=== PATIENT | male | born 1990 | race Caucasian/White ===

== ENCOUNTER 2018-10-14 07:59 | Emergency (ER) | payer BC ==
[2018-10-14] MEDS ORDERED: Diphtheria,Pertussis(Acell),Tetanus Vaccine 0.5 ML SDV IM ONE (08:29)
[2018-10-14] MEDS ORDERED: Bacitracin Oint 1 GM U/D Packet TOP ONE (08:30)
[2018-10-14] MEDS ORDERED: Lidocaine 2% 20 ML MDV INJECT ONE (08:30)
--- NOTE | 2018-10-14 08:35 | EDM.PDOC ---
ED HPI GENERAL MEDICAL PROBLEM - General Chief Complaint: General Stated Complaint: NAIL THROUGH LT THUMB Time Seen by Provider: 10/14/18 08:25 Source of Information: Reports: Patient History Limitations: Reports: No Limitations - History of Present Illness INITIAL COMMENTS - FREE TEXT/NARRATIVE: 28 yo male got a nail in the distal L thumb today at work. Uncertain tetanus status. Here for removal. Onset: Today Onset Date: 10/14/18 Onset Time: 07:05 Duration: Minutes:, Constant Location: Reports: Upper Extremity, Left Quality: Reports: Dull Severity: Mild Improves with: Reports: Rest Worsens with: Reports: Movement Context: Reports: Trauma Associated Symptoms: Reports: No Other Symptoms Treatments PRODUCTION TECHNOLOGIST: Reports: Other (see below) (none) Left Finger-Thumb Pain Score (Numeric/FACES): 6 - Related Data Allergies Allergy/AdvReac Type Severity Reaction Status Date / Time No Known Allergies Allergy Verified 10/14/18 08:23 Home Meds: Home Meds NK [No Known Home Meds] 10/14/18 [History] Past Medical History HEENT History: Reports: Impaired Vision - Past Surgical History Head Surgeries/Procedures: Reports: None HEENT Surgical History: Reports: None Social & Family History - Tobacco Use Smoking Status *Q: Never Smoker Second Hand Smoke Exposure: No - Caffeine Use Caffeine Use: Reports: None - Alcohol Use Days Per Week of Alcohol Use: 1 Number of Drinks Per Day: 1 Total Drinks Per Week: 1 - Recreational Drug Use Recreational Drug Use: No ED ROS GENERAL - Review of Systems Review Of Systems: See Below Constitutional: Reports: No Symptoms Musculoskeletal: Reports: No Symptoms Skin: Reports: Wound (puncture wound L distal thumb) Neurological: Reports: No Symptoms ED EXAM, GENERAL - Physical Exam Exam: See Below Exam Limited By: No Limitations General Appearance: Alert, WD/WN, No Apparent Distress Extremities: Other (large nail through and through of distal L thumb, no active bleeding.) Neurological: Alert, Oriented, CN II-XII Intact, Normal Cognition, No Motor/ Sensory Deficits Psychiatric: Normal Affect, Normal Mood Skin Exam: Warm, Dry, Normal Color, No Rash, Wound/Incision (puncture of L thumb , nail still imbedded in distal thumb) Course - Vital Signs Text/Narrative:: Nail cut at skin level on the entrance side, also cut the little gloria that was protruding. He had been digitally blocked with 5 ml of 2% lidocaine in advance. His thumb and the nail were soaked in betadine before extraction. Last Recorded V/S: Last Vital Signs Temp 36.0 C 10/14/18 08:27 Pulse 74 10/14/18 08:27 Resp 16 10/14/18 08:27 BP 145/90 H 10/14/18 08:27 Pulse Ox 97 10/14/18 08:27 - Orders/Labs/Meds Orders: Active Orders 24 hr Category Date Time Status Vaccines to be Administered [RC] PER UNIT ROUTINE Care 10/14/18 08:30 Active Meds: Medications Discontinued Medications Generic Name Dose Route Start Last Admin Trade Name Freq PRN Reason Stop Dose Admin Hydrocodone Bitart/Acetaminophen 1 tab 10/14/18 09:29 Montgomery 325-5 Mg PO 10/14/18 09:30 ONETIME ONE Bacitracin 1 dose 10/14/18 08:30 10/14/18 08:52 Bacitracin Oint 1 Gm TOP 10/14/18 08:31 1 dose ONETIME ONE Administration Diphtheria/Tetanus/Acell Pertussis 0.5 ml 10/14/18 08:29 Adacel IM 10/14/18 08:30 .ONCE ONE Lidocaine HCl 6 ml 10/14/18 08:30 10/14/18 08:52 Xylocaine 2% INJECT 10/14/18 08:31 6 ml ONETIME ONE Administration Povidone Iodine 30 ml 10/14/18 08:40 10/14/18 08:52 Betadine 10% Soln TOP 10/14/18 08:41 30 ml NOW STA Administration - Radiology Interpretation Free Text/Narrative:: L thumb X-ray-no fx Departure - Departure Time of Disposition: 09:40 Disposition: Home, Self-Care 01 Condition: Fair Clinical Impression: Puncture wound of thumb with foreign body without damage to nail Qualifiers: Encounter type: initial encounter Laterality: left Qualified Code(s): S61.042A - Puncture wound with foreign body of left thumb without damage to nail, initial encounter Clinical Impression: (Ruled Out): Foreign body (FB) in soft tissue, Puncture wound of thumb - Discharge Information *PRESCRIPTION DRUG MONITORING PROGRAM REVIEWED*: No *COPY OF PRESCRIPTION DRUG MONITORING REPORT IN PATIENT TALHA: No Instructions: Puncture Wound, [id number] Referrals: PCP,None [Primary Care Provider] - Forms: ED Department Discharge Additional Instructions: Clean wound twice daily with soap and water. Dry. Apply antibiotic ointment and a new dressing. Keep elevated today to reduce pain and bleeding. Take ibuprofen 600 mg every 6 hrs with food and/or acetaminophen 1000 mg every 6 hrs for pain relief. Wound recheck Wednesday morning in the clinic, return here over the weekend if worse. - My Orders Last 24 Hours: My Active Orders 10/14/18 08:30 Vaccines to be Administered [RC] PER UNIT ROUTINE - Assessment/Plan Last 24 Hours: My Active Orders 10/14/18 08:30 Vaccines to be Administered [RC] PER UNIT ROUTINE
[2018-10-14] MEDS ORDERED: Povidone-Iodine 10% Soln 118.25 ML Bottle TOP STA (08:40)
--- NOTE | 2018-10-14 09:22 | CRLCR ---
INDICATION: Nail in thumb. FINDINGS: Four views of the left thumb show a nail through the soft tissues over the distal tip of the 1st distal phalanx. No evidence of acute fracture. No other bony or soft tissue abnormalities identified. Dictated by Dickson Crane MD @ 10/14/2018 9:20:24 AM Dictated by: Dickson Crane MD @ 10/14/2018 09:21:09 (Electronically Signed)
[2018-10-14] MEDS ORDERED: Acetaminophen/HYDROcodone 325-5 MG Tab PO ONE (09:29)
== END 2018-10-14 09:41 | disposition home or self-care (01) ==
LOC: JP.ED 07:59
DX: S61.042A Puncture wound with foreign body of left thumb without damage to nail, initial encounter (principal); Z23 Encounter for immunization; W45.0XXA Nail entering through skin, initial encounter
CPT/HCPCS: 64450; 73140; 90471; 90715; 99283; A9270; J2001

== ENCOUNTER 2019-08-31 14:08 | Emergency (ER) | payer SELFPAY ==
[2019-08-31] MEDS ORDERED: Lidocaine 2% 20 ML MDV NERVRT ONE (14:26)
--- NOTE | 2019-08-31 14:55 | CR ---
Fingers Third Digit Lt F2 CLINICAL HISTORY: Laceration FINDINGS: Patient has a comminuted displaced fracture of the third middle phalanx. There is a fracture line extending to the proximal articular margin. Impression: Displaced comminuted fracture third middle phalanx
--- NOTE | 2019-08-31 15:02 | EDM.PDOC ---
ED HPI GENERAL MEDICAL PROBLEM - General Chief Complaint: Upper Extremity Injury/Pain Stated Complaint: CUT FINGER OFF WITH A SAW Time Seen by Provider: 08/31/19 14:50 Source of Information: Reports: Patient History Limitations: Reports: No Limitations - History of Present Illness INITIAL COMMENTS - FREE TEXT/NARRATIVE: 29 yo male accidently nearly completely amputated his L long finger with a power saw before arrival. His tetanus is UTD. This injury is not work related. Onset: Today, Sudden Onset Date: 08/31/19 Duration: Minutes:, Constant Location: Reports: Upper Extremity, Left Quality: Reports: Ache Severity: Moderate Improves with: Reports: None Worsens with: Reports: Other (bumping wound) Context: Reports: Trauma Associated Symptoms: Reports: No Other Symptoms Treatments EMERGENCY DEPARTMENT RN: Reports: Other (see below) (none) - Related Data Allergies Allergy/AdvReac Type Severity Reaction Status Date / Time No Known Allergies Allergy Verified 10/14/18 08:23 Home Meds: Home Meds NK [No Known Home Meds] 10/14/18 [History] Past Medical History HEENT History: Reports: Impaired Vision - Past Surgical History Head Surgeries/Procedures: Reports: None HEENT Surgical History: Reports: None Social & Family History - Tobacco Use Smoking Status *Q: Never Smoker - Caffeine Use Caffeine Use: Reports: None Review of Systems - Review of Systems Review Of Systems: See Below Constitutional: Reports: No Symptoms Musculoskeletal: Reports: Hand Pain (L long finger pain from his injury) Skin: Reports: Wound (L long finger amputation just distal to the PIP st) Neurological: Reports: Numbness (dsital to the injury) ED EXAM, GENERAL - Physical Exam Exam: See Below Exam Limited By: No Limitations General Appearance: Alert, WD/WN, No Apparent Distress Extremities: Other (Traumatic amputation of the L long finger just distally to the PIP jt). No: Normal Inspection, Normal Range of Motion, Non-Tender, Redness Neurological: Alert, Oriented, CN II-XII Intact, Normal Cognition. No: No Motor/Sensory Deficits (numbness distal to the injury) Psychiatric: Normal Affect, Normal Mood Skin Exam: Warm, Dry, Normal Color, No Rash, Wound/Incision (open wound from traumatic finger amputation ) Course - Vital Signs Text/Narrative:: Dr. Rubio has been called and will see patient in the ER. Last Recorded V/S: Last Vital Signs Temp 36 C L 08/31/19 14:28 Pulse 81 08/31/19 14:28 Resp 16 08/31/19 14:28 BP 120/73 08/31/19 14:28 Pulse Ox 99 08/31/19 14:28 - Orders/Labs/Meds Orders: Active Orders 24 hr Category Date Time Status Sodium Chloride 0.9% [Normal Saline] 1,000 ml Med 08/31/19 15:30 Active IV ASDIRECTED Medication Orders Sodium Chloride (Normal Saline) 1,000 mls @ 150 mls/hr IV ASDIRECTED JOON Last Admin: 08/31/19 15:32 Dose: 150 mls/hr Documented by: [id number] Meds: Medications Generic Name Dose Route Start Last Admin Trade Name Freq PRN Reason Stop Dose Admin Sodium Chloride 1,000 mls @ 150 mls/hr 08/31/19 15:30 08/31/19 15:32 Normal Saline IV 150 mls/hr ASDIRECTED JOON Administration Discontinued Medications Generic Name Dose Route Start Last Admin Trade Name Freq PRN Reason Stop Dose Admin Hydromorphone HCl 1 mg 08/31/19 15:21 08/31/19 15:32 Dilaudid IVPUSH 08/31/19 15:22 1 mg ONETIME ONE Administration Cefazolin Sodium 1 gm/ Sodium 50 mls @ 100 mls/hr 08/31/19 15:22 Chloride IV 08/31/19 15:51 ONETIME ONE Cefazolin Sodium/Dextrose 1 gm 50 mls @ 100 mls/hr 08/31/19 15:22 08/31/19 15:32 / Premix IV 08/31/19 15:51 100 mls/hr ONETIME ONE Administration Ketorolac Tromethamine 30 mg 08/31/19 15:21 08/31/19 15:32 Toradol IVPUSH 08/31/19 15:22 30 mg ONETIME ONE Administration Lidocaine HCl 10 ml 08/31/19 14:26 08/31/19 14:37 Xylocaine 2% NERVRT 08/31/19 14:27 10 ml ONETIME ONE Administration - Radiology Interpretation Free Text/Narrative:: finger X-ray-Fx/amputation at mid portion of middle phalanx, long finger L hand Departure - Departure Time of Disposition: 17:05 Disposition: Home, Self-Care 01 Condition: Fair Clinical Impression: Finger amputation, traumatic Qualifiers: Encounter type: initial encounter Qualified Code(s): S68.119A - Complete traumatic metacarpophalangeal amputation of unspecified finger, initial encounter - Discharge Information *PRESCRIPTION DRUG MONITORING PROGRAM REVIEWED*: No *COPY OF PRESCRIPTION DRUG MONITORING REPORT IN PATIENT TALHA: No Instructions: Traumatic Finger Amputation Referrals: PCP,None [Primary Care Provider] - Forms: ED Department Discharge Additional Instructions: Keep finger elevated and clean and dry. Take Gustavus as needed for pain relief. Take cephalexin every 8 hrs until gone. See Dr. Rubio in his office in 10 days. Starting tomorrow night change your dressing twice a day and clean the wound with 1/2 water and 1/2 peroxide. Dry. Apply bacitracin ointment. Recheck sooner for signs of infection. Sepsis Event Note (ED) - Evaluation Sepsis Screening Result: No Definite Risk - Focused Exam Vital Signs: Vital Signs Temp Pulse Resp BP Pulse Ox 08/31/19 14:28 36 C L 81 16 120/73 99 08/31/19 14:27 36 C L 81 16 120/73 99 - My Orders Last 24 Hours: My Active Orders 08/31/19 15:30 Sodium Chloride 0.9% [Normal Saline] 1,000 ml IV ASDIRECTED - Assessment/Plan Last 24 Hours: My Active Orders 08/31/19 15:30 Sodium Chloride 0.9% [Normal Saline] 1,000 ml IV ASDIRECTED
[2019-08-31] MEDS ORDERED: HYDROmorphone 1 MG/ML Syringe IVPUSH ONE (15:21)
[2019-08-31] MEDS ORDERED: Ketorolac 30 MG/ML SDV IVPUSH ONE (15:21)
[2019-08-31] MEDS ORDERED: ceFAZolin 1 GM in Sodium Chloride 0.9% 50 ML IV ONE (15:22)
[2019-08-31] MEDS ORDERED: ceFAZolin 1 GM in Premix Bag 1 BAG IV ONE (15:22)
[2019-08-31] MEDS ORDERED: Sodium Chloride 0.9% 1,000 ML IV SCH (15:30)
== END 2019-08-31 17:06 | disposition home or self-care (01) ==
LOC: JP.ED 14:08
DX: S68.623A Partial traumatic transphalangeal amputation of left middle finger, initial encounter (principal); W27.0XXA Contact with workbench tool, initial encounter
CPT/HCPCS: 73140; 96365; 96375; 99283; J0690; J1170; J1885; J2001; J7030